=== PATIENT | male | born 1985 | race African-American/Black ===

== ENCOUNTER 2019-06-09 12:48 | Emergency (ER) | payer BC ==
--- NOTE | 2019-06-09 13:11 | EDM.PDOC ---
ED HPI GENERAL MEDICAL PROBLEM - General Chief Complaint: Lower Extremity Injury/Pain Stated Complaint: RT ANKLE PAIN Time Seen by Provider: 06/09/19 13:10 Source of Information: Reports: Patient History Limitations: Reports: No Limitations - History of Present Illness INITIAL COMMENTS - FREE TEXT/NARRATIVE: 34-year-old male presents the ED for evaluation of right lateral ankle pain. Reports she's torn ligaments on his right lateral ankle on at least more than one occasion playing basketball. Recently there is increased swelling and pain around the lateral malleolus and into his foot. Pain is aching and burning at times suggesting some inflammation of the superficial peroneal nerve. He does wear heavy work boot in the workplace. He works on uneven ground although is not aware of any specific recurrent inversion injury to the ankle. States he's better if he is wearing his tennis shoes. Worsens with lacing up his work boots. He has been icing it with an Josh wrap over the area at times. Onset: Gradual Onset Date: 06/02/19 Duration: Getting Worse (Problematic over the last week seems to be getting worse.), Waxing/Waning Location: Reports: Lower Extremity, Right (Right lateral ankle and dorsal foot.) Quality: Reports: Ache, Burning, Throbbing Severity: Moderate Improves with: Reports: Rest (And not wearing his work boots.) Worsens with: Reports: Other (Seems to get worse at work.) Context: Reports: Trauma (Previous remote trauma to the ligaments of the lateral ankle on multiple occasions playing basketball). 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: Reports: NSAIDS (Motrin.) Right Ankle Pain Score (Numeric/FACES): 7 - Related Data Home Meds: Home Meds Diclofenac Sodium [Voltaren] 50 mg PO TID #30 tab.ec 06/09/19 [Rx] predniSONE [Deltasone] 20 mg PO BID #10 tablet 06/09/19 [Rx] Past Medical History Musculoskeletal History: Reports: Other (See Below) Other Musculoskeletal History: torn ligaments to rt foot Social & Family History - Family History Family Medical History: Noncontributory - Tobacco Use Smoking Status *Q: Current Some Day Smoker Years of Tobacco use: 0 Packs/Tins Daily: 0 - Caffeine Use Caffeine Use: Reports: Energy Drinks - Recreational Drug Use Recreational Drug Use: No Drug Use in Last 12 Months: No - Living Situation & Occupation Occupation: Employed Review of Systems - Review of Systems Review Of Systems: See Below Constitutional: Reports: No Symptoms Eyes: Reports: No Symptoms Ears: Reports: No Symptoms Nose: Reports: No Symptoms Mouth/Throat: Reports: No Symptoms Respiratory: Reports: No Symptoms Cardiovascular: Reports: No Symptoms GI/Abdominal: Reports: No Symptoms Genitourinary: Reports: No Symptoms Musculoskeletal: Reports: No Symptoms Skin: Reports: No Symptoms Neurological: Reports: No Symptoms Psychiatric: Reports: No Symptoms ED EXAM, GENERAL - Physical Exam Exam: See Below Exam Limited By: No Limitations General Appearance: Alert, WD/WN, No Apparent Distress, Other (Vital signs reveal blood pressure slightly elevated systolically 145/67.) Extremities: Other (Examination was limited to the right ankle and foot area. There is swelling surrounding the lateral malleolus. There is tenderness along the distribution of the peroneus brevis tendon as well as the calcaneal fibular ligament and anterior ligament of the right ankle. Inversion stress makes the pain much worse. Also pain on full dorsiflexion.) Neurological: Alert, Oriented, CN II-XII Intact, Normal Cognition Psychiatric: Normal Affect, Normal Mood Skin Exam: Warm, Dry, Intact, Normal Color, No Rash Course - Vital Signs Last Recorded V/S: Last Vital Signs Temp 36.7 C 06/09/19 12:58 Pulse 85 06/09/19 12:58 Resp 16 06/09/19 12:58 BP 145/67 H 06/09/19 12:58 Pulse Ox 96 06/09/19 12:58 - Orders/Labs/Meds Orders: Active Orders 24 hr Category Date Time Status Ankle Min 3V Rt [CR] Stat Exams 06/09/19 13:22 Taken - Radiology Interpretation Free Text/Narrative:: 34-year-old male presents to the ED due to acute exacerbation of pain along the lateral aspect of his right ankle. He reports torn ligaments in this area on more than one occasion playing basketball. He is currently working field and wears a work boot which he has to lace up and unfortunately the tongue of the boot does right across the dorsal aspect of his foot. He finds the pain is eased up quite a bit by wearing his tennis shoes. She reveals pain and swelling surrounding the lateral malleolus particularly inferior to the malleolus and the calcaneofibular distribution. However there appears to be some inflammation of the peroneus brevis tendon sheath as well. Marked pain with full inversion of the ankle and full dorsiflexion of the ankle on exam. Plan x-ray of the ankle will be obtained. he appears to have bony prominence of the lateral malleolus itself. - Re-Assessments/Exams Free Text/Narrative Re-Assessment/Exam: 06/09/19 13:47 x-rays of the right ankle are completely normal. Patient reassured in this regard. Josh wrap applied. He is getting pressure on this area from likely a wrinkle in a wet leather boot. He will inspect his parents when he gets home. Going to place him on 10 days of Voltaren 50 mg 3 times daily to reduce pain and inflammation and 5 day course of Deltasone 20 mg twice daily breakfast and supper to relieve pain and inflammation. Josh wrap on during the day and off at night. Ice pack to the ankle as soon as he gets off work daily. He is to expect gradual improvement in the next 7-10 days Departure - Departure Time of Disposition: 13:48 Disposition: Home, Self-Care 01 Condition: Fair Clinical Impression: Tendinitis of right ankle - Discharge Information *PRESCRIPTION DRUG MONITORING PROGRAM REVIEWED*: Not Applicable *COPY OF PRESCRIPTION DRUG MONITORING REPORT IN PATIENT JULIEN: Not Applicable Prescriptions: Diclofenac Sodium [Voltaren] 50 mg PO TID #30 tab.ec predniSONE [Deltasone] 20 mg PO BID #10 tablet Referrals: PCP,None [Primary Care Provider] - Forms: ED Department Discharge Additional Instructions: Evaluation the emergency room today in regards to pain and swelling around the lateral malleolus of the outside of your right ankle. There is indeed inflammation likely of the peroneus brevis tendon sheath just anterior to the fibular bone. There is also inflammation of the ligaments that support the ankle I calcaneal fibular low the fibular bone outer ankle. X-ray of the ankle is completely normal showing no bony abnormalities. Clinically you have a tendinitis and inflammation of the tendon sheath surrounding the ankle bones to be being aggravated by your current work boots. As we discussed inspect them for any wrinkles that might be present in the tongue of the boot that could be causing pressure on the tendons or tendon sheath on a daily basis. You have already appreciated ankle feels better when wearing tennis shoes. Treatment is Josh wrap on during the day and off at night. Ice pack to the ankle one half hour after get off work. Medication is to be anti-inflammatory Voltaren 50 mg 3 times daily for the next 10 days preferably with food. Also Deltasone 20 mg twice daily with breakfast and supper for 5 days for to relieve pain and inflammation. SPECT gradual improvement in the pain and inflammation and swelling over the next 7-10 days. - My Orders Last 24 Hours: My Active Orders 06/09/19 13:22 Ankle Min 3V Rt [CR] Stat - Assessment/Plan Last 24 Hours: My Active Orders 06/09/19 13:22 Ankle Min 3V Rt [CR] Stat
--- NOTE | 2019-06-09 15:19 | CR ---
Right ankle: Four views of the right ankle were obtained. Comparison: No previous study. Mild deformity is noted off the medial malleolus which is felt compatible with old injury. Ankle mortise is symmetric. No acute fracture, dislocation or other bony abnormality is identified. Impression: 1. Old injury off the medial malleolus. 2. Right ankle study is otherwise unremarkable. Diagnostic code #2
== END 2019-06-09 14:10 | disposition home or self-care (01) ==
LOC: JD.ED 12:48
DX: M77.9 Enthesopathy, unspecified (principal); F17.200 Nicotine dependence, unspecified, uncomplicated
CPT/HCPCS: 73610-26-RT; 73610-RT; 99283; 99283-25

== ENCOUNTER 2019-09-17 17:39 | Emergency (ER) | payer BC ==
--- NOTE | 2019-09-17 18:54 | EDM.PDOC ---
ED HPI GENERAL MEDICAL PROBLEM - General Chief Complaint: Lower Extremity Injury/Pain Stated Complaint: RT ANKLE INJURY Time Seen by Provider: 09/17/19 18:20 Source of Information: Reports: Patient History Limitations: Reports: No Limitations - History of Present Illness INITIAL COMMENTS - FREE TEXT/NARRATIVE: Patient is a 34-year-old male who presents with complaints of right ankle pain. He states this is been a chronic issue for him since spraining his ankle numerous times playing basketball. He was treated with Voltaren and prednisone in the emergency department here back in May with a diagnosis of tendinitis. He states his symptoms did improve after this, however he continues to work on his feet frequently and has to wear work boots. There is no acute injury to the area. He feels that if he starts on these medications again and is able to rest and ice the foot for couple days it will improve. He has been using compression and ice to the area intermittently. Right Ankle Pain Score (Numeric/FACES): 5 - Related Data Allergies Allergy/AdvReac Type Severity Reaction Status Date / Time No Known Allergies Allergy Verified 09/17/19 18:00 Home Meds: Home Meds Diclofenac Sodium [Voltaren] 50 mg PO Q8H 5 Days #15 tab.ec 09/17/19 [Rx] predniSONE [Prednisone] 20 mg PO BID 5 Days #10 tablet 09/17/19 [Rx] Past Medical History Musculoskeletal History: Reports: Other (See Below) Other Musculoskeletal History: torn ligaments to rt foot Social & Family History - Family History Family Medical History: Noncontributory - Tobacco Use Smoking Status *Q: Current Some Day Smoker Years of Tobacco use: 4 Packs/Tins Daily: 0.5 - Caffeine Use Caffeine Use: Reports: Coffee - Recreational Drug Use Recreational Drug Use: No - Living Situation & Occupation Occupation: Employed Review of Systems - Review of Systems Review Of Systems: See Below Constitutional: Reports: No Symptoms Eyes: Reports: No Symptoms Ears: Reports: No Symptoms Nose: Reports: No Symptoms Mouth/Throat: Reports: No Symptoms Respiratory: Reports: No Symptoms Cardiovascular: Reports: No Symptoms GI/Abdominal: Reports: No Symptoms Genitourinary: Reports: No Symptoms Musculoskeletal: Reports: Other (Right ankle pain) Skin: Reports: No Symptoms Neurological: Reports: No Symptoms Psychiatric: Reports: No Symptoms ED EXAM, GENERAL - Physical Exam Exam: See Below Exam Limited By: No Limitations General Appearance: Alert, WD/WN, No Apparent Distress Respiratory/Chest: No Respiratory Distress, Lungs Clear, Normal Breath Sounds Cardiovascular: Normal Peripheral Pulses, Regular Rate, Rhythm, No Murmur Extremities: Other (Tenderness over the right lateral malleolus. There is no obvious swelling or deformity to the area.) Neurological: Alert, Oriented, Normal Cognition Psychiatric: Normal Affect, Normal Mood Skin Exam: Warm, Dry, Intact, Normal Color Course - Vital Signs Last Recorded V/S: Last Vital Signs Temp 98.1 F 09/17/19 18:01 Pulse 84 09/17/19 18:01 Resp 16 09/17/19 18:01 BP 131/103 H 09/17/19 18:01 Pulse Ox 98 09/17/19 18:01 - Re-Assessments/Exams Free Text/Narrative Re-Assessment/Exam: 09/17/19 18:51 We'll repeat a course of Voltaren and prednisone as he did have improvement of symptoms with this. I did recommend that he schedule appointment with orthopedics as this has been an ongoing issue for him. I will write him a note off from work Saturday. Departure - Departure Time of Disposition: 18:52 Disposition: Home, Self-Care 01 Condition: Fair Clinical Impression: Tendinitis of right ankle - Discharge Information *PRESCRIPTION DRUG MONITORING PROGRAM REVIEWED*: No *COPY OF PRESCRIPTION DRUG MONITORING REPORT IN PATIENT JULIEN: No Prescriptions: Diclofenac Sodium [Voltaren] 50 mg PO Q8H 5 Days #15 tab.ec predniSONE [Prednisone] 20 mg PO BID 5 Days #10 tablet Instructions: Tendinitis, [id number] Referrals: Reginald Harris DO [Physician] - Forms: ED Department Discharge, ED Return to Work/School Form Additional Instructions: You were seen in the emergency Department today for ongoing right ankle pain. This is likely a continued aggravation of your tendinitis. You have been prescribed a course of Voltaren as well as prednisone. Take his medications as prescribed. Continue to use ice and compression as needed to the extremity. I do recommend that she follow up with orthopedics doctor for your ongoing pain to this ankle. There is contact information for Dr. Harris at [facility] below. If he dispensed a new or worsening symptoms, please not hesitate to return to the emergency department. Sepsis Event Note - Evaluation Sepsis Screening Result: No Definite Risk - Focused Exam Vital Signs: Vital Signs Temp Pulse Resp BP Pulse Ox 09/17/19 18:01 98.1 F 84 16 131/103 H 98 Date Exam was Performed: 09/17/19 Time Exam was Performed: 19:03
== END 2019-09-17 19:24 | disposition home or self-care (01) ==
LOC: JD.ED 17:39
DX: M77.9 Enthesopathy, unspecified (principal); F17.210 Nicotine dependence, cigarettes, uncomplicated
CPT/HCPCS: 99283

== ENCOUNTER 2022-02-27 14:05 | Emergency (ER) | payer BC ==
[2022-02-27 15:09] LABS: CORONAVIRUS COVID-19 NAA NEGATIVE (NEGATIVE)
== END 2022-02-27 15:45 | disposition home or self-care (01) ==
LOC: JD.ED 14:05
DX: B34.9 Viral infection, unspecified (principal); Z20.822 Contact with and (suspected) exposure to COVID-19
CPT/HCPCS: 0240U; 71045; 99285

== ENCOUNTER 2023-12-03 08:22 | Emergency (ER) | payer BC ==
[2023-12-03 09:14] LABS: APPEARANCE,URINE CLEAR (Clear); BILIRUBIN,URINE NEGATIVE (Negative); COLOR,URINE YELLOW (Yellow); GLUCOSE,URINE NEGATIVE (Negative); KETONES,URINE NEGATIVE (Negative); LEUKOCYTE ESTERASE,URINE NEGATIVE (Negative); NITRITE,URINE NEGATIVE (Negative); OCCULT BLOOD,URINE NEGATIVE (Negative); PROTEIN,URINE NEGATIVE (Negative); UROBILINOGEN,URINE 0.2 (0.2-1.0)
[2023-12-03 09:42] LABS: BACTERIA,URINE FEW /hpf (FEW); EPITHELIAL CELLS,URINE 0-5 /hpf (0-5); MUCUS,URINE FEW /hpf (FEW); RBC,URINE 0-5 /hpf (0-5); WBC,URINE 0-5 /hpf (0-5)
[2023-12-03] MEDS: Magnesium Citrate Solution 296 ML Bottle PO ONE (10:32)
== END 2023-12-03 10:39 | disposition home or self-care (01) ==
LOC: JD.ED 08:22
DX: K59.01 Slow transit constipation (principal); R35.0 Frequency of micturition
CPT/HCPCS: 74018; 81001; 99284; A9270; 99283

== ENCOUNTER 2023-12-11 05:22 | Emergency (ER) | payer BC ==
[2023-12-11 06:08] LABS: APPEARANCE,URINE CLEAR (Clear); BILIRUBIN,URINE NEGATIVE (Negative); COLOR,URINE YELLOW (Yellow); GLUCOSE,URINE NEGATIVE (Negative); KETONES,URINE NEGATIVE (Negative); LEUKOCYTE ESTERASE,URINE NEGATIVE (Negative); NITRITE,URINE NEGATIVE (Negative); OCCULT BLOOD,URINE NEGATIVE (Negative); PROTEIN,URINE NEGATIVE (Negative)
[2023-12-11 06:42] LABS: BACTERIA,URINE RARE /hpf (FEW); EPITHELIAL CELLS,URINE 0-5 /hpf (0-5); MUCUS,URINE NOT SEEN /hpf (FEW); RBC,URINE 0-5 /hpf (0-5); WBC,URINE 0-5 /hpf (0-5)
[2023-12-11 06:43] LABS: A/G RATIO 1.1 (1-2); ANION GAP 15.2 (5-15); BILIRUBIN TOTAL 0.4 mg/dL (0.2-1.0); BUN/CREATININE RATIO 19.2 (14-18); CALCIUM 9.2 mg/dL (8.5-10.1); CREATININE 1.2 mg/dL (0.7-1.3); EST CRCL DRUG DOSING (CG) 99.76 mL/min; POTASSIUM,K 4.2 mEq/L (3.5-5.1); PROTEIN TOTAL,TP 7.7 g/dl (6.4-8.2)
[2023-12-11 06:53] LABS: BASOPHILS PERCENT AUTO 0.4 % (0.0-1.0); EOSINOPHILS ABSOLUTE AUTO 0.1 K/mm3 (0.0-0.4); EOSINOPHILS PERCENT AUTO 1.2 % (0.0-6.0); HEMATOCRIT 40.8 % (42.0-52.0); HEMOGLOBIN 14.5 gm/dl (14.0-18.0); IMMATURE GRAN ABSOLUTE AUTO 0.03 K/mm3 (0.00-0.05); IMMATURE GRAN PERCENT AUTO 0.6 % (0.0-0.4); LYMPHOCYTES ABSOLUTE AUTO 2.7 K/mm3 (1.0-4.8); LYMPHOCYTES PERCENT AUTO 53.5 % (24.0-44.0); MEAN CORPUSCULAR HEMOGLOBIN 32.6 pg (28.0-32.0); MEAN CORPUSCULAR HGB CONC 35.5 g/dl (32.0-36.0); MEAN CORPUSCULAR VOLUME 91.7 fl (83.0-99.0); MEAN PLATELET VOLUME 9.2 fl (9.4-12.4); MONOCYTES ABSOLUTE AUTO 0.5 K/mm3 (0.0-0.8); MONOCYTES PERCENT AUTO 9.7 % (0.0-8.0); NEUTROPHILS ABSOLUTE AUTO 1.7 K/mm3 (1.8-7.7); NEUTROPHILS PERCENT AUTO 34.6 % (41.0-71.0); PLATELET COUNT,PLT 195 K/mm3 (150-400); RED BLOOD CELL COUNT 4.45 M/mm3 (4.52-5.90); WHITE BLOOD CELL COUNT,WBC 5.03 K/mm3 (3.9-11.3)
== END 2023-12-11 07:07 | disposition home or self-care (01) ==
LOC: JD.ED 05:22
DX: R10.9 Unspecified abdominal pain (principal); R39.11 Hesitancy of micturition; Z86.16 Personal history of COVID-19
CPT/HCPCS: 36415; 74176; 74176-26; 80053; 81001; 83690; 85025; 99283; 99284